=== PATIENT | female | born 1945 | race African-American/Black ===

== ENCOUNTER 2018-03-21 09:09 | Day surgery (SDC) | payer MEDICARE, OTHER ==
[2018-03-21] VITALS (9 sets, daily range): BP systolic 137–154; BP diastolic 77–95
[~2018-03-21] VITALS: Ht 157.5 cm; Wt 59.0 kg
[2018-03-21] MEDS ORDERED: Tetracaine 0.5% Opth 4ml Soln LEFT EYE ONE (09:30)
[2018-03-21] MEDS ORDERED: Maxitrol Opth Oint 3.5gm ONE (09:55)
[2018-03-21] MEDS ORDERED: Lidocaine 2% MPF 5ml Vial INJ ONE (09:55)
[2018-03-21] MEDS ORDERED: Lidocaine 4% Amp ONE (09:55)
[2018-03-21] MEDS ORDERED: Lidocaine 1% MPF 10mg/ml 5ml ONE (09:55)
[2018-03-21] MEDS ORDERED: EPINEPHrine 1mg/1ml Amp ONE (09:55)
[2018-03-21] MEDS ORDERED: Carbachol 0.01% Op Soln 1.5ml vial ONE (09:55)
[2018-03-21] MEDS ORDERED: Tetracaine 0.5% Opth 4ml Soln ONE (09:56)
[2018-03-21] MEDS ORDERED: BSS 500ml btl ONE (09:56)
[2018-03-21] MEDS ORDERED: Dexamethasone 4mg/ml vial ONE (09:56)
[2018-03-21] MEDS ORDERED: Acetylcholine Injection (OR) ONE (09:56)
[2018-03-21] MEDS ORDERED: BSS 15ml BTL ONE (09:56)
[2018-03-21] MEDS ORDERED: Povidone-Iodine 5% opth solution ONE (09:56)
[2018-03-21] MEDS ORDERED: Healon Duet Dual Pack ONE (09:56)
[2018-03-21] MEDS ORDERED: Bupivacaine 0.75% 30ml vial INJ ONE (09:56)
[2018-03-21] MEDS: Phenylephrine 2.5% Op 2ml Soln LEFT EYE SCH ×3 (10:06→10:36)
[2018-03-21] MEDS: Vigamox Opth Soln 3ml LEFT EYE SCH ×3 (10:06→10:36)
[2018-03-21] MEDS: Cyclopentolate 1% Opth Sol 2ml LEFT EYE SCH ×3 (10:06→10:36)
[2018-03-21] MEDS ORDERED: VITAMIN D250000 UNI1 ORAL (10:35)
[2018-03-21] MEDS ORDERED: GABAPENTIN300 MG ORAL ×2 (10:35)
[2018-03-21] MEDS ORDERED: LOSARTAN POTASS50 MG ORAL (10:35)
[2018-03-21] MEDS ORDERED: FOLIC ACID1 MG ORAL (10:35)
[2018-03-21] MEDS ORDERED: COMBIGAN EYE DRO5 ML BOTH EYES (10:35)
[2018-03-21] MEDS ORDERED: COLCHICINE0.6 M1 PO (10:35)
[2018-03-21] MEDS ORDERED: PRED FORTE1 ML RIGHT EYE (10:35)
[2018-03-21] MEDS ORDERED: AMLODIPINE BESYL5 MG ORAL (10:35)
[2018-03-21] MEDS ORDERED: METFORMIN HCL500 M1 ORAL (10:35)
[2018-03-21] MEDS ORDERED: ASPIR 8181 MG ORAL (10:35)
[2018-03-21] MEDS ORDERED: ATORVASTATIN CA40 MG ORAL (10:35)
[2018-03-21] MEDS ORDERED: PROTONIX40 MG ORAL (10:35)
[2018-03-21] MEDS ORDERED: SYNTHROID25 MCG ORAL (10:35)
[2018-03-21] MEDS ORDERED: CARVEDILOL6.25 MG ORAL (10:35)
[2018-03-21] MEDS ORDERED: FUROSEMIDE40 MG ORAL (10:35)
[2018-03-21] MEDS ORDERED: POTASSIUM CHLO10 ME2 PO (10:35)
[2018-03-21] MEDS ORDERED: fentaNYL 100 mcg/2 mL IV ONE (11:00)
[2018-03-21] MEDS ORDERED: NS Irrig 1000ml ONE (11:00)
[2018-03-21] MEDS ORDERED: Propofol 200mg/20ml IV ONE (11:00)
[2018-03-21] MEDS ORDERED: Midazolam 2mg/2ml Inj ONE (11:00)
[2018-03-21] MEDS ORDERED: LR 1000ml ONE (11:00)
[2018-03-21] MEDS ORDERED: Sterile Water Irrig 1000ml IRRIG ONE (11:00)
--- NOTE | 2018-03-21 11:16 | Pre-Procedure Note/Attestation ---
Pre-Procedure Note/Attestation Complete Prior to Procedure Planned Procedure: left Procedure Narrative: phako ad IOL implant Indications for Procedure Pre-Operative Diagnosis: left taract Attestation I attest that I discussed the nature of the procedure; its benefits; risks and complications; and alternatives (and the risks and benefits of such alternatives ), prior to the procedure, with the patient (or the patient's legal regional sales representative). I attest that, if there was a reasonable possibility of needing a blood transfusion, the patient (or the patient's legal regional sales representative) was given the [facility] standardized written summary, pursuant to the Shahram Shine Blood Safety Act ([place] Health and Safety Code # 1645, as amended). I attest that I re-evaluated the patient just prior to the surgery and that there has been no change in the patient's H&P, except as documented below: Juan Carlos Hopkins MD Mar 21, 2018 11:16
--- NOTE | 2018-03-21 12:06 | Anethesia Preoperative Eval ---
Anesthesia Pre-op PMH/ROS General Date of Evaluation: Mar 21, 2018 Time of Evaluation: 11:00 Anesthesiologist: claudine ASA Score: ASA 3 Mallampati Score Class I : Soft palate, uvula, fauces, pillars visible Class II: Soft palate, uvula, fauces visible Class III: Soft palate, base of uvula visible Class IV: Only hard plate visible Mallampati Classification: Class II Surgeon: vanessa Diagnosis: cataract Surgical Procedure: cataract extraction left eye Anesthesia History: none Family History: no anesthesia problems Allergies: Coded Allergies: HYDROMORPHONE (Verified Allergy, Severe, 03/21/18) NAUSEA IODINE (Verified Allergy, Severe, 03/21/18) IODINE IV-HIVES PENICILLIN G (Verified Allergy, Severe, 03/21/18) HIVES TRAMADOL (Verified Allergy, Severe, 03/21/18) ABD PAIN METHADONE (Verified Allergy, Intermediate, 03/21/18) "FELT LIKE GOING OUT OF MY MIND" Uncoded Allergies: LACTOSE INTOLERANCE (Allergy, Mild, 03/21/18) DIARRHEA Medications: see eMAR Patient NPO?: Yes NPO Date: Mar 20, 2018 NPO Time: 23:59 Past Medical History Cardiovascular: Reports: HTN; Denies: CAD, UT, valve dz, arrhythmia, other Pulmonary: Denies: asthma, COPD, SONYA, other Gastrointestinal/Genitourinary: Reports: GERD; Denies: CRI, ESRD, other Neurologic/Psychiatric: Reports: other - seizure Endocrine: Reports: DM, hypothyroidism HEENT: Reports: cataract (L) Hematology/Immune: Denies: anemia, DVT, bleeding disorder, other Musculoskeletal/Integumentary: Denies: OA, RA, DJD, DDD, edema, other PMH Narrative: last seizure activity in may 2017 PSxH Narrative: left and eye surgery Anesthesia Pre-op Phys. Exam Physician Exam Last Vital Signs Date Time Temp Pulse Resp B/P (MAP) Pulse Ox O2 Delivery O2 Flow Rate FiO2 03/21/18 10:46 Room Air 03/21/18 10:20 98.1 64 20 143/91 100 Constitutional: NAD Neurologic: CN 2-12 intact Cardiovascular: RRR Respiratory: CTA Gastrointestinal: S/NT/ND Airway Exam Mallampati Classification 3 Mallampati Score: Class III MO: full ROM: full Dentures: no upper, no lower Anesthesia Pre-op A/P Labs Accucheck 95 Studies Pre-op Studies: EKG - sr Risk Assessment & Plan Assessment: denies changes in health status last 6 months Plan: mac Status Change Before Surgery: No Pre-Antibiotics Drug: declined Jayde Gore CRNA Mar 21, 2018 12:06
[2018-03-21] MEDS ORDERED: fentaNYL 100 mcg/2 mL IV PRN (12:15)
--- NOTE | 2018-03-21 12:36 | Brief Operative Note ---
Immediate Post Operative Note Operative Note Pre-op Diagnosis: left taract Procedure: left phako and IOL implant Post-op Diagnosis: same as preop Surgeon: Juan Carlos Hopkins Commercial Lending Vice President: none Additional Surgeons: none Anesthesiologist: Jayde Amado Anesthesia: MAC Specimen: none Complications: none Condition: stable Fluids: LR tko Estimated Blood Loss: none Drains: none Implant(s) used?: Yes Juan Carlos Hopkins MD Mar 21, 2018 12:36
--- NOTE | 2018-03-21 12:36 | 48 Hour Post Anesthesia Eval ---
Post Anesthesia Evaluation Procedure: left eye cataract Date of Evaluation: Mar 21, 2018 Time of Evaluation: 12:34 Blood Pressure Systolic: 147 0: 92 Pulse Rate: 73 Respiratory Rate: 14 Temperature (Fahrenheit): 97.8 O2 Sat by Pulse Oximetry: 100 Airway: patent Nausea: No Vomiting: No Hydration Status: adequate Mental Status/LOC: patient returned to baseline Follow-up Care/Observations: na Post-Anesthesia Complications: none Follow-up care needed: N/A Jayde Gore [facility] Mar 21, 2018 12:36
--- NOTE | 2018-03-21 18:16 | Operative Note - Dictated ---
DATE OF OPERATION: 03/21/2018 PREOPERATIVE DIAGNOSES: 1. Degenerative cataract, left eye. 2. corneal transplantation, left eye. 3. Open-angle glaucoma, left eye. POSTOPERATIVE DIAGNOSES: 1. Degenerative cataract, left eye. 2. corneal transplantation, left eye. 3. Open-angle glaucoma, left eye. PROCEDURE: Left extracapsular cataract extraction with phacoemulsification and primary insertion of posterior chamber intraocular lens implant. SURGEON: Juan Carlos Hopkins M.D. ANESTHESIA: MAC by Jayde Gore CRNA INDICATIONS: The best corrected vision in the left eye 20/400 despite the clear corneal graft and grossly normal retina. FINDINGS: See indications and diagnosis. DESCRIPTION OF PROCEDURE: The patient received preoperatively topical antibiotics, dilating drops, tetracaine, and was brought into the operating room and given satisfactory sedation by the anesthesiologist. A total of 10 mL of mixture half and half Xylocaine 2% with epinephrine and Marcaine 0.75% were injected as modified Hanson akinesia and peribulbar anesthesia (4 mL). The patient was then prepped and draped in the usual manner. A Joon speculum was placed and a 3 mm wide incision was made at the lateral limbus just anterior to the arcades. The anterior chamber was penetrated at the 6 and 12 oclock position and slowly decompressed. A nonpreserved 1% Xylocaine was used to further enhance intraocular anesthesia. Under viscoelastic, the anterior chamber was penetrated through the vertical incision with a 3-mm wide keratome. A capsulorrhexis was done followed by hydrodissection. The nucleus was phacoemulsified with [employer] unit and [employer] technology. Cortical remnants were removed with the IA tip of the same unit. The intraocular lens was removed from its pack. The lens is a model [id number] from [employer]. The power was 14.0 D. The serial number is [id number]. The lens was loaded onto the [place] II delivery system, and injected into the capsular bag with the haptics dialed to the vertical meridian and the tap test confirming the adequate placement of the lens. The IA tip was then used to replace viscoelastic with balanced salt solution. The incisions were hydrated and were found to be watertight. Prior to that, Miochol was injected to reduce pupil size. Dexamethasone was injected into the inferior [place] space, 1 mL. Vigamox drops and TobraDex ointment were applied. The eye was closed. The patch and shield were applied. The patient tolerated well the procedure and left the operating room in good condition. Final diagnoses and procedures are as above. Juan Carlos Hopkins M.D. DR: Reilly JOB#: [id number] CC:
[2018-03-22 19:09] VITALS: BP 145/85
--- NOTE | 2018-03-22 19:10 | 48 Hour Post Anesthesia Eval ---
Post Anesthesia Evaluation Procedure: left eye cataract Date of Evaluation: Mar 22, 2018 Time of Evaluation: 19:09 Blood Pressure Systolic: 145 0: 85 Pulse Rate: 71 Respiratory Rate: 14 O2 Sat by Pulse Oximetry: 98 Airway: patent Nausea: No Vomiting: No Hydration Status: adequate Cardiopulmonary Status: stable Mental Status/LOC: patient returned to baseline Follow-up Care/Observations: na Post-Anesthesia Complications: none Follow-up care needed: N/A Jayde Gore MENTAL HEALTH PROGRAM DIRECTOR Mar 22, 2018 19:09
== END 2018-03-21 14:00 | disposition home or self-care (01) ==
LOC: SUR 09:09
DX: H25.012 Cortical age-related cataract, left eye (principal); Z88.0 Allergy status to penicillin; Z88.6 Allergy status to analgesic agent; I10 Essential (primary) hypertension; K21.9 Gastro-esophageal reflux disease without esophagitis; E11.9 Type 2 diabetes mellitus without complications; E03.9 Hypothyroidism, unspecified; H40.10X0 Unspecified open-angle glaucoma, stage unspecified
CPT/HCPCS: 66984; 82962; J0171; J1100; J2250; J2704; J3010; J3370; J3490; V2632; 94003; 94150